=== PATIENT | female | born 1940 | race African-American/Black ===

== ENCOUNTER 2016-06-05 02:24 | Emergency (ER) | payer MEDICARE, MEDICAID ==
[2016-06-05] VITALS (8 sets, daily range): BP systolic 139–152; BP diastolic 74–83
[~2016-06-05] VITALS: Ht 167.6 cm; Wt 72.6 kg
[~2016-06-05 02:24] MED LIST: AMLODIPINE BESY10 MG ORAL; ASPIR 8181 MG ORAL; COUMADIN7.5 MG ORAL; DONEPEZIL HCL10 MG ORAL; DONEPEZIL HCL5 M2 ORAL; HYDRALAZINE HCL10 MG ORAL; HYDRALAZINE HCL50 MG ORAL; LIPITOR80 MG ORAL; MEGACE40 MG PO; METFORMIN HCL500 M1 ORAL; POTASSIUM CHLO20 ME1 ORAL; PROTONIX20 MG ORAL; TYLENOL650 MG/20. ORAL; UNOBMED; ZESTRIL20 MG ORAL; ZOCOR20 M1 ORAL; ZOFRAN4 MG/5 ML ORAL
--- NOTE | 2016-06-05 02:33 | Emergency Room Report ---
History of Present Illness General Chief Complaint: Multiple Trauma/Fall Source: Medical Record, EMS Present Illness HPI This is a 75-year-old female with a history of chronic pulmonary embolism. She's taking Coumadin. She's also has a history of severe dementia. At baseline she able to ambulates and is alert to herself. She had a mechanical fall and sustained head injury. Sent in to be evaluated. Unable to get history from the patient. Allergies: Coded Allergies: No Known Allergies (Unverified , 05/15/13) Patient History Past Medical History: see triage record, old chart reviewed Past Surgical History: other Pertinent Family History: none Social History: Denies: smoking Last Menstrual Period: NA Now: No Immunizations: other Reviewed Nursing Documentation: PMH: Agreed, PSxH: Agreed Nursing Documentation-PMH Hx Cardiac Problems: Yes - AFIB, HYPERLIPIDEMIA Hx Hypertension: Yes - ACUTE EMBOLISM AND THROMBOSIS OF UNSPECIFIED DEEP VEIN Hx Diabetes: Yes - TYPE 2 Hx Cancer: Yes Hx Dementia: Yes Hx Alzheimer's Disease: Yes Hx Memory Loss: Yes Hx Tremors: Yes Hx Vertigo: Yes Hx Dizziness: Yes Hx Syncope: Yes Hx Headaches: Yes - brain tumor Hx Weakness: Yes Hx Fatigue: Yes Review of Systems Eye: Denies: blurred vision, eye pain ENT: Denies: ear pain, nose congestion, throat swelling Respiratory: Denies: cough, shortness of breath Cardiovascular: Denies: chest pain, palpitations Gastrointestinal: Denies: abdominal pain, diarrhea, nausea, vomiting Musculoskeletal: Denies: back pain, joint pain Skin: Denies: rash Neurological: Denies: headache, numbness Endocrine: Denies: increased thirst, increased urine Hematologic/Lymphatic: Denies: easy bruising All Other Systems: negative except mentioned in HPI Physical Exam Vital Signs Date Time Temp Pulse Resp B/P Pulse Ox O2 Delivery O2 Flow Rate FiO2 06/05/16 02:23 98.1 73 18 151/87 96 Room Air vitals with hypertension Sp02 EP Interpretation: reviewed, normal General Appearance: well appearing, no apparent distress, alert Head: normocephalic, other - large occiptal hematoma. Eyes: bilateral eye EOMI, bilateral eye PERRL ENT: hearing grossly normal, normal pharynx Neck: full range of motion, supple, no meningismus Respiratory: chest non-tender, lungs clear, normal breath sounds Cardiovascular #1: regular rate, rhythm, no murmur Gastrointestinal: normal bowel sounds, non tender, no mass, no organomegaly, no bruit, non-distended Musculoskeletal: back normal, normal range of motion Neurologic: alert Psychiatric: mood/affect normal Skin: warm/dry Procedures Critical Care Time Critical Care Time Critical care is mandated in this patient who presented with ICH requiring reversal. Patient require my urgent intervention to attenuate the risks of neurological collapse which may lead to cardiovascular collapse and . Critical care time is 35 minutes excluding any reportable procedure. Critical care time included evaluation, multiple reevaluation, looking at old charts, interpreting laboratory and diagnostic data, discussing case with patient and family and consultants, and charting. Medical Decision Making Diagnostic Impression: Primary Impression: Fall Qualified Codes: W19.XXXA - Unspecified fall, initial encounter Additional Impressions: Head injury, acute, without loss of consciousness Qualified Codes: S09.90XA - Unspecified injury of head, initial encounter Scalp hematoma Qualified Codes: S00.03XA - Contusion of scalp, initial encounter Dementia Qualified Codes: G30.9 - Alzheimer's disease, unspecified; F02.80 - Dementia in other diseases classified elsewhere without behavioral disturbance Subarachnoid hemorrhage following injury Qualified Codes: S06.6X0A - Traumatic subarachnoid hemorrhage without loss of consciousness, initial encounter ER Course Patient presents with mechanical fall and scalp hematoma. She also has a subarachnoid hemorrhage. Patient given vitamin K and FFP ordered. Patient is a full code. I discussed the case with her primary care Dr. Ramirez. I contacted Dr. Craig, [facility], but he doesn't come to [facility] anymore. I discussed case with Dr. Cao, neurologist, who reccommend calling Dr. Tyler. No response from him. Dr. Cao reccommends transfer since we don't have NS available. I discussed case with Dr. Nelson at [facility] who accepted pt for transfer. Wanted pt to get FFP prior to transfer. Laboratory Tests Test 06/05/16 04:00 06/05/16 04:40 Urine Color Pale yellow Urine Appearance Clear Urine pH 8 (4.5-8.0) Urine Specific Adrian 1.015 (1.005-1.035) Urine Protein Negative (NEGATIVE) Urine Glucose (UA) Negative (NEGATIVE) Urine Ketones Negative (NEGATIVE) Urine Occult Blood 2+ (NEGATIVE) H Urine Nitrite Negative (NEGATIVE) Urine Bilirubin Negative (NEGATIVE) Urine Urobilinogen Normal MG/DL (0.0-1.0) Urine Leukocyte Esterase 1+ (NEGATIVE) H Urine RBC 5-10 /HPF (0 - 2) H Urine WBC 5-10 /HPF (0 - 2) H Urine Squamous Epithelial Cells Moderate /LPF (NONE/OCC) H Urine Bacteria Moderate /HPF (NONE) H White Blood Count 9.1 K/UL (4.8-10.8) Red Blood Count 5.03 M/UL (4.20-5.40) Hemoglobin 11.8 G/DL (12.0-16.0) L Hematocrit 39.7 % (37.0-47.0) Mean Corpuscular Volume 79 FL (80-99) L Mean Corpuscular Hemoglobin 23.5 PG (27.0-31.0) L Mean Corpuscular Hemoglobin Concent 29.8 G/DL (32.0-36.0) L Red Cell Distribution Width 17.0 % (11.6-14.8) H Platelet Count 457 K/UL (150-450) H Mean Platelet Volume 5.4 FL (6.5-10.1) L Neutrophils (%) (Auto) 79.0 % (45.0-75.0) H Lymphocytes (%) (Auto) 13.0 % (20.0-45.0) L Monocytes (%) (Auto) 6.4 % (1.0-10.0) Eosinophils (%) (Auto) 1.2 % (0.0-3.0) Basophils (%) (Auto) 0.4 % (0.0-2.0) Prothrombin Time 19.9 SEC (9.30-11.50) H Prothromb Time International Ratio 1.9 (0.9-1.1) H Activated Partial Thromboplast Time 39 SEC (23-33) H Sodium Level 138 mEQ/L (135-145) Potassium Level 3.9 mEQ/L (3.4-4.9) Chloride Level 98 mEQ/L (98-107) Carbon Dioxide Level 27 mEQ/L (20-30) Anion Gap 13 (5-15) Blood Urea Nitrogen 10 mg/dL (7-23) Creatinine 0.6 mg/dL (0.5-0.9) Estimat Glomerular Filtration Rate mL/min (>60) Glucose Level 113 mg/dL (74-106) H Calcium Level 9.4 mg/dL (8.6-10.2) Lab Results Impression labs and elevated INR Rhythm Strip Diag. Results EP Interpretation: yes Rate: 68 Rhythm: NSR, no PVC's, no ectopy CT/MRI/US Diagnostic Results CT/MRI/US Diagnostic Results : Imaging Test Ordered: CT head Impression Read by radiologist. Right parietal-occipital hematoma. Scattered subarachnoid hemorrhage. Last Vital Signs Date Time Temp Pulse Resp B/P Pulse Ox O2 Delivery O2 Flow Rate FiO2 06/05/16 02:23 98.1 73 18 151/87 96 Room Air Status: improved Disposition: ER [facility] Condition: Critical NIKHIL INMAN M.D. Jun 05, 2016 02:33
[2016-06-05] MEDS ORDERED: DONEPEZIL HCL10 M2 ORAL (02:41)
[2016-06-05] MEDS ORDERED: PANTOPRAZOLE SO40 MG ORAL (02:41)
[2016-06-05] MEDS ORDERED: MIRTAZAPINE7.5 MG ORAL (02:41)
[2016-06-05] MEDS ORDERED: ACETAMINOPHEN650 M3 ORAL (02:41)
[2016-06-05] MEDS ORDERED: ZOFRAN4 M1 ORAL (02:41)
[2016-06-05] MEDS ORDERED: AMLODIPINE BESY10 MG ORAL (02:41)
[2016-06-05] MEDS ORDERED: ASPIRIN81 MG ORAL (02:41)
[2016-06-05] MEDS ORDERED: LIPITOR80 MG ORAL (02:41)
[2016-06-05] MEDS ORDERED: ATIVAN0.5 MG ORAL (02:41)
[2016-06-05 03:53] LABS: APPEARANCE,URINE CLEAR; KETONES,URINE NEGATIVE (NEGATIVE); NITRITE,URINE NEGATIVE (NEGATIVE); PH,URINE 8 (4.5-8.0); PROTEIN,URINE NEGATIVE (NEGATIVE); UROBILINOGEN,URINE NORMAL MG/DL (0.0-1.0)
[2016-06-05 04:03] LABS: BACTERIA,URINE MODERATE /HPF; LEUKOCYTE ESTERASE ,URINE 1+ (NEGATIVE); SQUAMOUS EPITHELIAL CELL,UR MODERATE /LPF (NONE/OCC)
[2016-06-05] MEDS ORDERED: Phytonadione 5 MG in D5W 55 ML IVPB ONE (04:45)
[2016-06-05 04:57] LABS: BASOPHILS % (AUTO) 0.4 % (0.0-2.0); EOSINOPHILS % (AUTO) 1.2 % (0.0-3.0); MEAN CORPUSCULAR HEMOGLOBIN 23.5 PG (27.0-31.0); MEAN CORPUSCULAR HGB CONC 29.8 G/DL (32.0-36.0); MEAN CORPUSCULAR VOLUME 79 FL (80-99); MEAN PLATELET VOLUME 5.4 FL (6.5-10.1); MONOCYTES % (AUTO) 6.4 % (1.0-10.0); PLATELET COUNT 457 K/UL (150-450); RED BLOOD COUNT 5.03 M/UL (4.20-5.40); WHITE BLOOD COUNT 9.1 K/UL (4.8-10.8)
[2016-06-05 04:59] LABS: INR 1.9 (0.9-1.1); PROTHROMBIN TIME 19.9 SEC (9.30-11.50)
[2016-06-05] MEDS ORDERED: Phytonadione 10 mg/mL 1ml amp ONE (05:00)
[2016-06-05 05:07] LABS: ANION GAP 13 (5-15); CALCIUM 9.4 mg/dL (8.6-10.2); CARBON DIOXIDE 27 mEQ/L (20-30); CHLORIDE 98 mEQ/L (98-107); CREATININE 0.6 mg/dL (0.5-0.9); HEMOLYSIS 1; POTASSIUM 3.9 mEQ/L (3.4-4.9); SODIUM 138 mEQ/L (135-145)
--- NOTE | 2016-06-05 10:10 | Diagnostic Imaging Report ---
Indication: Head trauma Technique: Continuous helical CT scanning of the head was performed utilizing automated exposure control without intravenous contrast material. Axial and coronal reconstructions were obtained. Comparison: 02/15/16 CT dose: Total DLP 1369 mGycm; CTDI vol 70.4 mGy Findings: There is scattered subarachnoid hemorrhage near the vertex bilaterally predominantly involving the left frontal and parietal lobes. There is no shift of midline structures. The ventricles, sulci and cisterns are prominent consistent with atrophy. Periventricular hypoattenuation is noted suggestive of chronic ischemic microvascular changes. The posterior fossa and fourth ventricle are unremarkable. Sellar and suprasellar regions are grossly unremarkable. Right parietal scalp hematoma is present without skull fracture. 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 Impression: Small amount of scattered subarachnoid hemorrhage near the vertex predominantly involving the left frontal and parietal lobes. Moderate right posterior scalp hematoma without skull fracture. Other findings as above. The above report is concordant with preliminary reading by [employer]. The CT scanner at [facility] is accredited by the [employer] and the scans are performed using protocols designed to limit radiation exposure to as low as reasonably achievable to attain images of sufficient resolution adequate for diagnostic evaluation.
== END 2016-06-05 08:30 | disposition short-term general hospital (02) ==
LOC: EDBD 02:24 → EMR 03:25
DX: S09.90XA Unspecified injury of head, initial encounter (principal); S00.03XA Contusion of scalp, initial encounter; S06.6X0A Traumatic subarachnoid hemorrhage without loss of consciousness, initial encounter; W19.XXXA Unspecified fall, initial encounter; Y93.9 Activity, unspecified; Y92.9 Unspecified place or not applicable; Z86.711 Personal history of pulmonary embolism; Z79.01 Long term (current) use of anticoagulants; I48.91 Unspecified atrial fibrillation; E11.9 Type 2 diabetes mellitus without complications; E78.5 Hyperlipidemia, unspecified; Z85.9 Personal history of malignant neoplasm, unspecified; G30.9 Alzheimer's disease, unspecified; F02.80 Dementia in other diseases classified elsewhere, unspecified severity, without behavioral disturbance, psychotic disturbance, mood disturbance, and anxiety; I10 Essential (primary) hypertension
CPT/HCPCS: 36415; 70450; 80048; 81001; 85025; 85610; 85730; 86850; 86900; 86901; 86927; 87081; 87086; 96374; 99291; J3430